=== PATIENT | male | born 1955 | race Caucasian/White ===

== ENCOUNTER 2021-08-19 06:09 | Emergency (ER) | payer MEDICARE, OTHER, SELFPAY ==
[2021-08-19] VITALS (16 sets, daily range): BP systolic 67–145; BP diastolic 48–88; PULSE 56–99; RESP 13–18; TEMP 36.3; O2SAT 14–100
--- NOTE | ~2021-08-19 | CT_ITS ---
EXAMINATION: CT BRAIN W/O DATE: 08/19/2021 07:52 INDICATION: Status post fall. TECHNIQUE: Computed tomography (CT) of the head was performed without intravenous contrast. The dose- length product was 605.33 mGy-cm. Automated exposure control and iterative reconstruction technique w ere employed. COMPARISON: No prior studies for comparison. FINDINGS: Normal brain parenchymal volume for age. Normal adams-white differentiation. No acute intrac ranial hemorrhage, infarction, mass or mass effect. No ventriculomegaly or midline shift. Midline sagittal images demonstrate a normal corpus callosum, c raniovertebral junction and sella turcica. Basilar cisterns are patent. There is mucosal thickening of the paranasal sinuses. Mastoids are pneumatized. No depressed skull fr actures. IMPRESSION: 1. No acute intracranial abnormality. 2: Sinusitis. Reviewed, dictated and finalized at location B. OMER SUPPLY COORDINATOR
--- NOTE | ~2021-08-19 | CT_ITS ---
EXAMINATION: CTA chest PE protocol EXAM DATE: 08/19/2021 09:49 INDICATION: Syncope, cancer, covid +, elevated dimer. TECHNIQUE: Spiral CTA of the chest (pulmonary arteries) was performed with 100 cc Omnipaque 350 intr avenous contrast injection. Images were acquired during the pulmonary arterial phase. Coronal maxi mum intensity projection 3D-reconstructions were created by the technologist on dedicated workstation . Axial, coronal and sagittal reformatted images were reviewed. The dose-length product (DLP) for t his examination was 382.70 mGy-cm. The exposure was tailored according to patient size (auto mA exp osure control), and iterative reconstruction (ASIR) was used as additional dose reduction technique. There is no prior study for comparison. FINDINGS: Pulmonary arteries are well opacified and without intraluminal filling defects. No thora cic aortic dissection. Aortic root measures 4.9 cm. There is moderate amount of bronchus intermedius endobronchial debris extending into segmental bronchi of the right lower lobe. There is segmental rig ht middle lobe airspace disease, could be atelectasis but pneumonia or cancer also possible. Small pe ricardial and bilateral pleural effusions. There is no mediastinal, hilar or axillary lymphadenopathy . There is no pneumothorax. Heart normal in size. There is mild coronary arterial calcification , arterial sclerosis. There is splenomegaly and dilated portal venous system, portal hypertension, probably from cirrhosis. Some generalized abdominal fat stranding and along the gallbladder, would favor interstitial edema o art acute cholecystitis. No gallbladder distention or calcified cholelithiasis. There is thoracic sp ondylosis without osteoblastic or osteolytic lesions identified. IMPRESSION: 1. No pulmonary emboli suspected. 2. Bronchus intermediusand basilar segmental endobronchial debris. 3. Segmental right middle lobe atelectasis. Underlying cancer or pneumonia not excludable. 4. Small pericardial and pleural effusions. 5. Mildly aneurysmal aortic root. 6. Cirrhosis, splenomegaly and portal hypertension. 7. Gallbladder wall edema more likely reactive than acute cholecystitis. Reviewed, dictated and finalized at location A. NRY INSTRUCTOR
--- NOTE | ~2021-08-19 | XR_ITS ---
EXAMINATION: XR chest 1V portable DATE: 08/19/2021 07:46 INDICATION: Dizziness TECHNIQUE: frontal view of the chest was obtained. COMPARISON: Chest radiograph dated 10/08/2005 FINDINGS: Airspace opacities in the right lower lung zone concerning for pneumonia. Left lung is clear. No pulm onary edema, pleural effusion or pneumothorax. The cardiomediastinal silhouette is normal. Visualized bones and soft tissues are unremarkable. IMPRESSION: 1. Opacities in the right lower lung concerning for pneumonia or aspiration in the appropriate clinic al setting. Reviewed, dictated and finalized at location A. NESS DEVELOPMENT SALES EXECUTIVE IMPRESSION: 1. Opacities in the right lower lung concerning for pneumonia or aspiration in the appropriate clinical setting.
--- NOTE | 2021-08-19 07:34 | ECG_ITS ---
Measurements Intervals [place] Rate: 56 P: 50 DE: 159 QRS: 5 QRSD: 108 T: 32 QT: 418 QTc: 406 Interpretive Statements SINUS BRADYCARDIA BORDERLINE ECG Electronically Signed On 08-19-2021 8:21:05 SPUD SORTER by Nishant Ellis D.O.
[2021-08-19 08:10] LABS: Basophils Percent Auto 0.5 % (0.2-1.2); Eosinophils Percent Auto 0.5 % (0-4.4); Hematocrit 41.2 % (42.0-52.0); Hemoglobin 13.5 g/dL (14.0-18.0); Immature Granulocyte Absolute 0.01 K/mm3 (0.00-0.031); Immature Granulocyte Percent A 0.2 % (0-0.5); Immature Platelet Fraction Pct 2.2 % (0.9-11.2); Lymphocytes Absolute Auto 1.06 K/mm3 (0.9-3.2); Lymphocytes Percent Auto 25.3 % (18.3-44.2); Mean Corpuscular HGB Conc 32.8 g/dl (32-36); Mean Corpuscular Hemoglobin 29.5 pg (26-34); Mean Platelet Volume 9.1 fl (7.4-10.4); Monocytes Absolute Auto 0.4 K/mm3 (0.1-0.6); Monocytes Percent Auto 9.1 % (2.6-8.5); Neutrophils Absolute Auto 2.7 K/mm3 (1.3-6.7); Neutrophils Percent Auto 64.4 % (45.5-73.1); Platelet Count Result 65 k/mm3 (150-375); Red Blood Count 4.58 M/mm3 (4.6-6.20); White Blood Count 4.2 K/mm3 (4.5-10.0)
[2021-08-19 08:18] LABS: D Dimer 0.87 ug/mL (<0.48)
[2021-08-19 08:32] LABS: Alanine Aminotransferase 39 U/L (4-50); Albumin Level 3.4 g/dL (3.5-5.1); Alkaline Phosphatase 61 U/L (38-126); Anion Gap 3 mmol/L (8-16); Aspartate Amino Transferase 38 U/L (17-59); Bilirubin,Total 0.3 mg/dL (0.2-1.3); Blood Urea Nitrogen 23 mg/dL (9-20); Calcium 8.3 mg/dL (8.4-10.2); Carbon Dioxide 29 mmol/L (22-30); Chloride 98 mmol/L (98-107); Estimated CRCL calculation 74 ml/min; Estimated Glomerular Filt Rate > 60; Glucose 90 mg/dL (65-110); Potassium 4.6 mmol/L (3.4-5.0); Sodium 130 mmol/L (137-145)
--- NOTE | 2021-08-19 08:34 | ECG_ITS ---
Measurements Intervals [place] Rate: 60 P: 37 FL: 142 QRS: -19 QRSD: 106 T: 14 QT: 411 QTc: 413 Interpretive Statements SINUS RHYTHM BASELINE ARTIFACT- V3-V6 NORMAL ECG Electronically Signed On 08-25-2021 12:20:32 SPIRITUAL ADVISOR by Nishant Ellis D.O.
--- NOTE | 2021-08-19 09:11 | ED.FALL ---
HPI - Fall General Chief Complaint: Fall Stated Complaint: light headed/dizzy; glf hit posterior head Time Seen by Provider: 08/19/21 07:31 Source: patient Mode of arrival: EMS Limitations: no limitations History of Present Illness HPI Narrative: This is a 66-year-old male that presents to the emergency department after a presyncopal episode today with head injury. Reports he was diagnosed with coronavirus a week ago. He is vaccinated. He has been experiencing congestion, nausea, and lightheadedness. Today he went to take his dog out and was feeling lightheaded. Reports next thing he knew he was on the ground. He hit his head on a barstool. He did not fully lose consciousness. Does report a laceration to his scalp. Otherwise denies any certain injuries. He is up-to-date on tetanus. Denies fever, chest pain, shortness of breath, vision changes, vomiting, numbness, or weakness. Related Data Home Medications Medication Instructions Recorded Confirmed cholecalciferol (vitamin D3) 25 25 mcg PO DAILY 02/21/20 06/25/20 mcg (1,000 unit) capsule acetaminophen [Tylenol Extra 1,000 mg PO TID PRN 08/19/21 08/19/21 Strength] alprazolam 0.5 mg PO HS PRN 08/19/21 08/19/21 clonazepam 0.5 mg PO HS 08/19/21 08/19/21 ondansetron HCl [Zofran] 4 mg PO Q8H 08/19/21 08/19/21 oxycodone 10 mg PO BID 08/19/21 08/19/21 prednisone 10 mg PO DAILY 08/19/21 08/19/21 prochlorperazine maleate 10 mg PO Q8H PRN 08/19/21 08/19/21 zolpidem [Ambien] 2.5 mg PO HS PRN 08/19/21 08/19/21 Allergies Allergy/AdvReac Type Severity Reaction Status Date / Time No Known Allergies Allergy Mild Verified 08/19/21 06:21 Review of Systems Review of Systems: CONSTITUTIONAL: Denies fever EYES: Denies visual changes CARDIOVASCULAR: Denies chest pain, or edema. RESPIRATORY: Denies dyspnea. GASTROINTESTINAL: Reports nausea. Denies vomiting MUSCULOSKELETAL: Denies back pain, joint pain, or myalgia. NEUROLOGIC: Denies headache, numbness, or weakness. All systems reviewed & are unremarkable except as noted in HPI and below PMFSH Past Medical History Medical History (Updated 08/19/21 @ 13:08 by Majo Atkins PA-C) Acquired hypothyroidism Dyslipidemia History of squamous cell carcinoma Family History Family History Father Family history of Alzheimer's disease Mother Family history of congestive heart failure, Onset Age: 85 Family history of malignant neoplasm of uterus, Onset Age: 85 Hypertension, Onset Age: 85 Social History Social History Smoking status: Never smoker Alcohol intake: current Exam Narrative: GENERAL: Chronically ill-appearing, well-nourished, and in no acute distress. HEAD: Normocephalic. 4cm linear laceration into subcutaneous tissue on posterior scalp EYES: PERRLA and EOMI. ENT: Nares clear, no rhinorrhea or epistaxis. Mucous membranes moist. Oropharynx without tonsillar hypertrophy exudate or other lesions. Bilateral TMs pearly adams non-bulging NECK: Supple. No adenopathy or masses. No midline cervical spine tenderness CHEST: Clear to auscultation. No respiratory distress. No wheezes rales or rhonchi HEART: Regular rate and rhythm. No murmur heard. Normal peripheral pulses. ABDOMEN: Soft, nontender, nondistended, normal active bowel sounds. BACK: No midline thoracic or lumbar spine tenderness EXTREMITIES: Normal range of motion. No edema or obvious deformity. Strength equal in bilateral upper and lower extremities (5/5) SKIN: Warm, dry, no rash. NEURO: No focal deficits. Alert and oriented x3. Cranial nerves II through XII grossly intact PSYCH: Normal mood and affect Course Consultations Consultation #1: Spoke with patient's oncologist about work-up. Patient will be in touch if they feel like he is unable to keep up with intake orally and he can set patient up for IV fluids. Date: 08/19/21 Time: 13:00
[2021-08-19] MEDS: SODIUM CHLORIDE 0.9% IV 1,000 ML 999 ML IV CONT (09:17)
--- NOTE | 2021-08-19 09:38 | PC.NURSE ---
called lab and added PT PTT INR to lab work
[2021-08-19 09:56] LABS: Partial Thromboplastin Time 31.5 SECONDS (22.3-36.8); Prothrombin Time 12.7 Seconds (11.1-14.7)
--- NOTE | 2021-08-19 10:15 | PC.NURSE ---
second bolus administered VORB ERP tori.
--- NOTE | 2021-08-19 12:52 | PC.NURSE ---
Walked patient around room as instructed by GHAZAL Atkins. Patient denied any dizziness. [facility] technology analyst
== END 2021-08-19 13:00 | disposition home or self-care (01) ==
PROVIDERS: Physician Assistant; Emergency Provider Emergency Medicine
DX: I95.1 Orthostatic hypotension (principal); D69.6 Thrombocytopenia, unspecified; E03.9 Hypothyroidism, unspecified; E78.5 Hyperlipidemia, unspecified
CPT/HCPCS: 12002; 36415; 70450; 71045; 71275; 80053; 85025; 85055; 85380; 85610; 85730; 93005; 96365; 99284; J7030; Q9967

== ENCOUNTER 2022-02-22 12:00 | Emergency (ER) | payer MEDICARE, OTHER, SELFPAY ==
[2022-02-22] VITALS (27 sets, daily range): BP systolic 108–147; BP diastolic 71–99; PULSE 73–110; RESP 15–22; TEMP 36.4; O2SAT 97–100
--- NOTE | ~2022-02-22 | CT_ITS ---
EXAMINATION: CTA neck DATE: 02/22/2022 13:34 INDICATION: Oral hemorrhage. TECHNIQUE: Computed tomographic angiography (CTA) of the neck was performed with 100 mL Omnipaque 300 intravenous contrast. Automated exposure control and iterative reconstruction technique were employe d. The dose-length product was 602.80 mGy-cm. Maximum intensity projection 3D-reconstructions were cr eated by the technologist on a separate workstation. COMPARISON: None. FINDINGS: There are surgical clips in right neck, likely from lymph node dissection. There are no pat hologically enlarged lymph nodes. There is plaque in the proximal carotid and internal carotid arteri es. There is 0% stenosis of the proximal right internal carotid artery relative to normal distal maryam ry lumen diameter (NASCET criteria). There is 0% stenosis of the proximal left internal carotid arter y relative to normal distal artery lumen diameter. Right sternocleidomastoid muscle is small. Right s ubmandibular gland is absent. There is mucosal thickening in the paranasal sinuses. There are likely changes of ocular lens replacement surgeries. There is no significant stenosis of the vertebral arter ies. There is thickening of the mucosa of the pharynx and larynx, likely changes of radiation therapy . There is mucous in the trachea and right mainstem bronchus. There is severe cervical spondylosis. IMPRESSION: 1. No pseudoaneurysm. 2. 0% stenosis of the proximal internal carotid arteries relative to normal distal artery lumen diame ters (NASCET criteria). Reviewed, dictated and finalized at location A. IMPRESSION: 1. No pseudoaneurysm. 2. 0% stenosis of the proximal internal carotid arteries relative to normal dis zachary artery lumen diameters (NASCET criteria).
--- NOTE | 2022-02-22 12:00 | ECG_ITS ---
Measurements Intervals [place] Rate: 80 P: 48 AL: 124 QRS: -11 QRSD: 103 T: 30 QT: 355 QTc: 411 Interpretive Statements SINUS RHYTHM COMPARED TO ECG 08/19/2021 08:34:28 NO SIGNIFICANT CHANGES Electronically Signed On 02-22-2022 12:12:31 CDT by Rashid Dixon M.D.
[2022-02-22 12:13] LABS: Basophils Percent Auto 0.2 % (0.2-1.2); Eosinophils Percent Auto 0.6 % (0-4.4); Hematocrit 34.7 % (42.0-52.0); Hemoglobin 11.3 g/dL (14.0-18.0); Immature Granulocyte Absolute 0.02 K/mm3 (0.00-0.031); Immature Granulocyte Percent A 0.4 % (0-0.5); Lymphocytes Absolute Auto 0.51 K/mm3 (0.9-3.2); Lymphocytes Percent Auto 9.4 % (18.3-44.2); Mean Corpuscular HGB Conc 32.6 g/dl (32-36); Mean Platelet Volume 8.7 fl (7.4-10.4); Monocytes Absolute Auto 0.3 K/mm3 (0.1-0.6); Monocytes Percent Auto 5.9 % (2.6-8.5); Neutrophils Absolute Auto 4.6 K/mm3 (1.3-6.7); Neutrophils Percent Auto 83.5 % (45.5-73.1); Platelet Count Result 80 k/mm3 (150-375); Red Cell Distribution Width 14.7 % (11.5-14.5); White Blood Count 5.4 K/mm3 (4.5-10.0)
[2022-02-22 12:24] LABS: Alanine Aminotransferase 36 U/L (6-50); Alkaline Phosphatase 87 U/L (38-126); Anion Gap 5 mmol/L (8-16); Aspartate Amino Transferase 34 U/L (17-59); Bilirubin,Total 0.4 mg/dL (0.2-1.3); Blood Urea Nitrogen 19 mg/dL (9-20); Calcium 7.9 mg/dL (8.4-10.2); Carbon Dioxide 24 mmol/L (22-30); Chloride 103 mmol/L (98-107); Estimated CRCL calculation 94 ml/min; Estimated Glomerular Filt Rate > 60; Glucose 131 mg/dL (65-110); Potassium 4.5 mmol/L (3.4-5.0); Sodium 132 mmol/L (137-145)
--- NOTE | 2022-02-22 12:31 | ED.GENADULT ---
HPI - General Adult General Chief complaint: Unspecified Stated complaint: 500 Ml blood loss from tongue abcess Time Seen by Provider: 02/22/22 12:29 Related Data Home Medications Medication Instructions Recorded Confirmed cholecalciferol (vitamin D3) 25 25 mcg PO DAILY 02/21/20 06/25/20 mcg (1,000 unit) capsule acetaminophen 500 mg capsule 1,000 mg PO TID PRN Pain 08/19/21 08/19/21 alprazolam 0.5 mg tablet 0.5 mg PO HS PRN anxiety 08/19/21 08/19/21 clonazepam 0.5 mg tablet 0.5 mg PO HS 08/19/21 08/19/21 ondansetron HCl 4 mg tablet 4 mg PO Q8H 08/19/21 08/19/21 (Zofran) oxycodone 10 mg tablet 10 mg PO BID 08/19/21 08/19/21 prednisone 10 mg tablet 10 mg PO DAILY 08/19/21 08/19/21 prochlorperazine maleate 10 mg 10 mg PO Q8H PRN Nausea 08/19/21 08/19/21 tablet zolpidem 5 mg tablet (Ambien) 2.5 mg PO HS PRN Sleep 08/19/21 08/19/21 Allergies Allergy/AdvReac Type Severity Reaction Status Date / Time No Known Allergies Allergy Mild Verified 08/19/21 06:21 [facility] Past Medical History Medical History (Updated 02/22/22 @ 15:45 by Kary Cabezas MD) Acquired hypothyroidism Dyslipidemia History of squamous cell carcinoma Family History Family History Father Family history of Alzheimer's disease Mother Family history of congestive heart failure, Onset Age: 85 Family history of malignant neoplasm of uterus, Onset Age: 85 Hypertension, Onset Age: 85 Social History Social History Smoking status: Never smoker Alcohol intake: current Course Vital Signs Vital signs: Vital Signs Temperature 36.4 C L 02/22/22 11:54 Pulse Rate 78 02/22/22 11:54 Respiratory Rate 18 02/22/22 11:54 Blood Pressure 108/75 02/22/22 11:54 Pulse Oximetry 97 06/07/22 11:54 Oxygen Delivery Room Air 02/22/22 11:54 Temperature 36.4 C L 02/22/22 11:54 Pulse Rate 75 02/22/22 14:45 Respiratory Rate 22 H 02/22/22 14:45 Blood Pressure 136/99 H 02/22/22 14:30 Pulse Oximetry 100 02/22/22 14:45 Oxygen Delivery Room Air 02/22/22 11:54 Medical Decision Making MDM Narrative Medical decision making narrative: Patient presenting for evaluation of bleeding from the right lower mouth at the location number patient has known neck cancer. Patient without recent operation. Patient reports bursting sensation and then 500 cc of blood loss reported by EMS. At time of my assessment, ABCs are intact and vital signs are stable. He is protecting his airway. Patient has blood clot present in the floor of the right lower palate, and he has significant difficulty opening his mouth secondary to radiation in that area. Patient does not have any significant neck edema there is some fullness in the neck that is nontender, nonboggy. Patient has a hard lymph node that I am able to palpate in the submandibular area patient continues to protect his airway without recurrent risk bleeding in the ER he does have some general oozing from that area. His H&H are stable at the time of initial assessment and recheck with only a mild downtrend. He does have a chronic thrombocytopenia, patient would not require transfusion based on this. I obtain a CT of the neck to ensure no erosion of neoplastic process into vessels of which there is none. I spoke with the radiologist regarding the scan. Given patient's history, I spoke with Dr. Bautista, ENT at [facility], who recommended that the patient be transferred to the emergency department for evaluation by ENT with potential surgery versus cauterization versus embolectomy depending upon findings there. I spoke with Dr. Homero Goetz in the emergency department who accepted the patient to the ER. Patient was reassessed without any recurrent bleeding in the ER. Patient awaiting transfer via ambulance. Vital Signs Vital Signs: Vital Signs Temperature 36.4 C L 06
--- NOTE | 2022-02-22 13:23 | PC.NURSE ---
Patient to radiology
[2022-02-22 13:56] LABS: SARS-CoV-2 RNA PCR Negative
[2022-02-22 14:03] LABS: INR 1.1; Partial Thromboplastin Time 28.9 SECONDS (22.3-36.8); Prothrombin Time 13.8 Seconds (11.1-14.7)
[2022-02-22 14:50] LABS: Hematocrit 33.7 % (42.0-52.0); Hemoglobin 10.9 g/dL (14.0-18.0)
--- NOTE | 2022-02-22 15:20 | PC.NURSE ---
Report given to BHASKAR Gutierrez at [facility].
--- NOTE | 2022-02-22 18:20 | PC.NURSE ---
Patient updated on updated ETA for EMS at 1999. Patient's states that's it you're going home or I am taking you there, this is ridiculous. Patient then states he will stay and wait for EMS.
== END 2022-02-22 20:24 | disposition short-term general hospital (02) ==
PROVIDERS: Emergency Medicine; Emergency Provider Emergency Medicine
DX: K13.79 Other lesions of oral mucosa (principal); Z20.822 Contact with and (suspected) exposure to COVID-19; C02.9 Malignant neoplasm of tongue, unspecified; C79.89 Secondary malignant neoplasm of other specified sites; E03.9 Hypothyroidism, unspecified; E78.5 Hyperlipidemia, unspecified
CPT/HCPCS: 36415; 70498; 80053; 85014; 85018; 85025; 85610; 85730; 86850; 86900; 86901; 93005; 99284; 99285; C9803; Q9967; U0003; U0005

== ENCOUNTER 2024-02-05 06:57 | Emergency (ER) | payer MEDICARE, OTHER, SELFPAY ==
[2024-02-05] VITALS (13 sets, daily range): BP systolic 0–146; BP diastolic 0–76; PULSE 0–156; RESP 0–39; TEMP 39.2; O2SAT 0–86
[2024-02-05 07:33] LABS: Hematocrit 31.6 % (42.0-52.0); Mean Corpuscular HGB Conc 31.6 g/dl (32-36); Mean Corpuscular Hemoglobin 29.9 pg (26-34); Mean Corpuscular Volume 94.6 fl (80-100); Mean Platelet Volume 9.4 fl (7.4-10.4); Platelet Count Result 143 k/mm3 (150-375); Red Blood Count 3.34 M/mm3 (4.6-6.20); White Blood Count 2.9 K/mm3 (4.5-10.0)
[2024-02-05 07:51] LABS: Albumin Level 2.7 g/dL (3.5-5.1); Alkaline Phosphatase 53 U/L (38-126); Anion Gap 8 mmol/L (4-12); Aspartate Amino Transferase 33 U/L (17-59); Bilirubin,Total 0.6 mg/dL (0.2-1.3); Blood Urea Nitrogen 19 mg/dL (9-20); Calcium 8.2 mg/dL (8.4-10.2); Carbon Dioxide 25 mmol/L (22-30); Chloride 100 mmol/L (98-107); Creatine Kinase 95 U/L (55-170); Estimated Glomerular Filt Rate 51; Glucose 107 mg/dL (65-110); Potassium 3.5 mmol/L (3.4-5.0); Sodium 133 mmol/L (137-145)
[2024-02-05 07:53] LABS: INR 1.5; Prothrombin Time 18.9 Seconds (11.1-14.7)
[2024-02-05 07:54] LABS: Partial Thromboplastin Time 38.9 Seconds (22.3-36.8)
[2024-02-05 07:56] LABS: Band Neutrophils Percent 11 % (0-6); Lymphocytes Absolute Manual 1.71 K/mm3 (1.1-4.5); Metamyelocytes Percent 2 %; Monocytes Absolute Manual 0.34 K/mm3 (0.1-0.90); Monocytes Percent Manual 12 % (3-9); Neutrophils Absolute Manual 0.78 K/mm3 (1.3-6.7); Neutrophils Percent Manual 16 % (46-73); Platelet Estimate Slightly Decreased (Adequate); Total Cells Counted 100
[2024-02-05 07:57] LABS: Alanine Aminotransferase 29 U/L (6-50); Anisocytosis 1+; Microcytosis 1+ (NORMAL); Schistocytes None Seen
[2024-02-05 08:03] LABS: Lactic Acid Reflex 8.4 mmol/L (0.7-2.0); Troponin I 0.076 ng/mL (0.000-0.034)
[2024-02-05] MEDS: LACTATED RINGERS 1,000 ML 999 ML IV CONT (08:28)
[2024-02-05 09:20] LABS: Appearance Urine Clear (Clear); Bacteria Urine None Seen /hpf; Bilirubin Urine Negative (Negative); Blood Urine Negative (Negative); Color Urine Yellow (Yellow); Glucose Urine UA Negative (Negative); Ketones Urine Negative (Negative); Leukocyte Esterase Ur Negative LEU/UL (Negative); Nitrate Urine Negative (Negative); Non Pathogenic Casts 0-2; Protein Urine Trace mg/dL (Negative); Specific Grav Ur 1.013 (1.001-1.035); Squamous Epithelial Cell Urine None Seen /hpf (Few); Urobilinogen Urine 0.2 mg/dL (<2.0); WBC Urine 0-5 /hpf (0-3); pH Urine 7.5 (5.0-9.0)
[2024-02-05 09:21] LABS: Add Urine Microscopic? YES
[2024-02-05] MEDS: LORazepam INJ (*CRX) 2 MG/ML VIAL 0.5 MG IV PUSH (09:23)
--- NOTE | 2024-02-05 09:32 | PC.NURSE ---
PT NOTED TO DEVELOP SUDDEN BRADYCARDIA DOWN TO THE 50'S. ,STEP DAUGHTERS AND TECHNOLOGY ARCHITECT AT BEDSIDE. HEART RATE PROGRESSED DOWN TO TEENS ANDTHEN 0. ASYSTOLE NOTED. DR QUINN AT BEDSIDE. PT PRONOUNCED AT 0932.
--- NOTE | 2024-02-05 10:11 | ED.AMS ---
HPI - Altered Mental Status General Chief Complaint: Altered Mental Status Stated Complaint: AMS Time Seen by Provider: 02/05/24 07:00 History of Present Illness HPI narrative: Patient's found him this morning altered unresponsive, immediately called EMS who arrived to bring him here. Related Data Home Medications Medication Instructions Recorded Confirmed cholecalciferol (vitamin D3) 25 25 mcg PO DAILY 02/21/20 06/25/20 mcg (1,000 unit) capsule acetaminophen 500 mg capsule 1,000 mg PO TID PRN Pain 08/19/21 08/19/21 alprazolam 0.5 mg tablet 0.5 mg PO HS PRN anxiety 08/19/21 08/19/21 clonazepam 0.5 mg tablet 0.5 mg PO HS 08/19/21 08/19/21 ondansetron HCl 4 mg tablet 4 mg PO Q8H 08/19/21 08/19/21 (Zofran) oxycodone 10 mg tablet 10 mg PO BID 08/19/21 08/19/21 prednisone 10 mg tablet 10 mg PO DAILY 08/19/21 08/19/21 prochlorperazine maleate 10 mg 10 mg PO Q8H PRN Nausea 08/19/21 08/19/21 tablet zolpidem 5 mg tablet (Ambien) 2.5 mg PO HS PRN Sleep 08/19/21 08/19/21 Allergies Allergy/AdvReac Type Severity Reaction Status Date / Time No Known Allergies Allergy Mild Verified 08/19/21 06:21 Review of Systems Review of Systems: ROS unobtainable: Yes unobtainable due to mental status PMFSH Past Medical History Medical History (Updated 02/05/24 @ 10:11 by Nya Powers MD) Acquired hypothyroidism Dyslipidemia History of squamous cell carcinoma Family History Family History Father Family history of Alzheimer's disease Mother Family history of congestive heart failure, Onset Age: 85 Family history of malignant neoplasm of uterus, Onset Age: 85 Hypertension, Onset Age: 85 Social History Social History Smoking status: Never smoker Alcohol intake: current Exam Narrative: EXAMINATION OF ORGAN SYSTEMS/BODY AREAS: Constitutional: Vital signs per nursing GENERAL: Appears toxic HEAD: Normal with no signs of head trauma. EYES: Will open eyes ENT: Dry mucous membranes LUNGS: Dyspneic, equal lung sounds bilaterally HEART: Tachycardic ABD: [Soft], [nontender to palpation] EXT: No significant bruising SKIN: No significant bruising, dry eschar around neck NEURO: Will open eyes to painful stimulus Course Vital Signs Vital signs: Vital Signs Temperature 102.5 F H 02/05/24 07:03 Pulse Rate 156 H 02/05/24 07:03 Respiratory Rate 33 H 02/05/24 07:03 Blood Pressure 81/45 L 02/05/24 07:03 Pulse Oximetry 40 L 02/05/24 07:03 Oxygen Delivery Room Air 02/05/24 07:03 Temperature 102.5 F H 02/05/24 07:03 Pulse Rate 0 L 02/05/24 09:32 Respiratory Rate 0 L 02/05/24 09:32 Blood Pressure 0/0 L 02/05/24 09:32 Pulse Oximetry 0 L 02/05/24 09:32 Oxygen Delivery BiPAP 02/05/24 08:51 Oxygen Flow Rate 15 02/05/24 07:16 MDM - Altered Mental Status MDM Narrative Medical decision making narrative: Patient presented altered mental status, I was in the room as EMS pulled in and patient is immediately placed on monitors, access obtained via port, placed on non-rebreather then escalated to BiPAP, and IV fluids started. Broad workup initiated. I was informed by EMS the patient has history of throat cancer, and on re-evaluation there does appear to be scarring tissue around his neck, I am highly concerned for a very difficult airway, calls made to his to ascertain code status; while waiting for this all airway equipment including adjunct for crich, calls made to anesthesia and ENT Dr Murphy who did come to bedside. Were able to get a hold of the did state that he did not want to be on a machine and he was DNR/DNI She is now arrived to the hospital, did have a long discussion with her that I am concerned about his current status and he is quite critical, we did have a long discussion as to what treatments he would like to have done and ultimately s
[2024-02-05 10:31] LABS: Reflex Lactic Acid Yes or No Add Lactic
--- NOTE | 2024-02-05 18:46 | PCCCNOTE ---
[id number] CC called to the ED for end of life assistance with the family.
== END 2024-02-05 09:32 | disposition expired ==
PROVIDERS: Emergency Provider Emergency Medicine
DX: A41.9 Sepsis, unspecified organism (principal); R65.21 Severe sepsis with septic shock; C14.0 Malignant neoplasm of pharynx, unspecified; E03.9 Hypothyroidism, unspecified; E78.5 Hyperlipidemia, unspecified; Z66 Do not resuscitate; Z79.899 Other long term (current) drug therapy; Z79.60 Long term (current) use of unspecified immunomodulators and immunosuppressants
CPT/HCPCS: 36415; 80053; 81001; 82550; 83605; 84443; 84484; 85025; 85610; 85730; 87040; 96361; 96374; 99284; A9270; J2060; J7120